=== PATIENT | male | born 1980 | race Caucasian/White ===

== ENCOUNTER → 2018-08-23 | Outpatient (CLI) | payer BC ==
[2018-08-23 11:01] LABS: HCT 44.1 % (39.0-53.0); HGB 14.6 gm/dL (13.0-17.5); MCH 28.4 pg (25.0-35.0); MCV 85.9 fL (80.0-100.0); Mean Platelet Volume 6.6; Platelet Count 308 k/uL (150-450); RBC 5.13 m/uL (4.30-5.90); RDW 13.1 % (11.5-15.5); WBC 5.1 k/uL (3.8-10.6)
[2018-08-23 12:02] LABS: Erythrocyte Sedimentation Rate 8 mm/hr (0-15)
[2018-08-23 17:00] LABS: Rheumatoid Factor 6 IU/mL (0-15); Streptolysin O Ab(ASO) <25 IU/mL (0-200)
[2018-08-23 17:02] LABS: C Reactive Protein 1.6 mg/dL (0.0-0.8); Uric Acid 8.9 mg/dL (3.7-8.7)
[2018-08-24 11:04] LABS: HLA B27 NEGATIVE
[2018-08-27 12:48] LABS: Lyme IgG/IgM 0.06 Index
== END | disposition home or self-care (01) ==
LOC: LABWHC1 09:18
PROVIDERS: ATTEND Orthopaedic Surgery
DX: M25.572 Pain in left ankle and joints of left foot (principal); M25.472 Effusion, left ankle; M19.072 Primary osteoarthritis, left ankle and foot; M10.9 Gout, unspecified
CPT/HCPCS: 36415; 84443; 84550; 85027; 85652; 86038; 86060; 86140; 86431; 86618; 86812; 89060

== ENCOUNTER 2022-10-27 07:15 | Day surgery (SDC) | payer BC ==
[2022-10-24 15:03] VITALS: BMI 39.6
[~2022-10-27 07:15] MED LIST: HYDROmorphone 0.5 MG/0.5 ML SYRINGE IVP PRN; LACTATED RINGERS 1,000 ML IV SCH; ONDANSETRON 4 MG/2 ML VIAL IVP PRN; ceFAZolin 3 GM in SODIUM CHLORIDE 0.9% 100 ML IVPB PRN
[2022-10-27 07:53] VITALS: RESP 16
[2022-10-27] MEDS ORDERED: DEXAMETHASONE SOD PHOSPHATE 4 MG/ML 1 ML VIAL IV ONE (08:09)
[2022-10-27] MEDS ORDERED: SCOPOLAMINE 1 MG/72 HR PATCH TRANSDERM ONE (08:09)
[2022-10-27] MEDS ORDERED: fentaNYL (PF) 50 MCG/1 ML VIAL IV ONE (08:10)
[2022-10-27] MEDS ORDERED: MIDAZOLAM 2 MG/2 ML VIAL IV ONE (08:10)
--- NOTE | 2022-10-27 08:25 | P.ANPRN ---
Procedure Note - Anesthesia - Nerve Block Performed Right Popliteal Single Time Out Performed: Yes Date of Procedure: 10/27/22 Procedure Start Time: 08:09 Procedure Stop Time: 08:14 Indication: Acute Post-Operative Pain, Requested by Surgeon Sedation Type: Sedate with meaningful contact maintained Preparation: Sterile Prep Position: Supine Needle Types: Pajunk Needle Gauge: 21 Ultrasound used to visualize needle placement: Yes Ultrasound used to observe medication spread: Yes Injectate: Other (see comment) (0.25% Ropiv 25 ml)
--- NOTE | 2022-10-27 08:26 | P.ANPRN ---
Procedure Note - Anesthesia - Nerve Block Performed Right Adductor Canal Single Time Out Performed: Yes Date of Procedure: 10/27/22 Procedure Start Time: 08:14 Procedure Stop Time: 08:17 Location of Patient: PreOp Indication: Acute Post-Operative Pain, Requested by Surgeon Sedation Type: Sedate with meaningful contact maintained Preparation: Sterile Prep Position: Supine Needle Types: Pajunk Needle Gauge: 21 Ultrasound used to visualize needle placement: Yes Ultrasound used to observe medication spread: Yes Injectate: Other (see comment) (0.25% Ropivicaine 25 ML) Blood Aspirated: No Pain Paresthesia on Injection Noted: No Resistance on Injection: Normal Image Stored and Saved: Yes Events: Uneventful and Well Tolerated
[2022-10-27] MEDS ORDERED: ROCURONIUM 10 MG/ML (5 ML VIAL) IV ONE (09:07)
[2022-10-27] MEDS ORDERED: SUCCINYLCHOLINE CHLORIDE 200 MG/10 ML VIAL IV ONE (09:07)
[2022-10-27] MEDS ORDERED: HYDROmorphone (PF) 1 MG/ML ONE (09:07)
[2022-10-27] MEDS ORDERED: MIDAZOLAM 2 MG/2 ML VIAL ONE (09:07)
[2022-10-27] MEDS ORDERED: ROPIVACAINE 5 MG/ML 30 ML VIAL ONE (09:07)
[2022-10-27] MEDS ORDERED: LIDOCAINE 2% INJ 20 MG/ML (2 ML VIAL) ONE (09:07)
[2022-10-27] MEDS ORDERED: KETOROLAC 30 MG/ML 1 ML VIAL ONE (09:07)
[2022-10-27] MEDS ORDERED: fentaNYL (PF) 50 MCG/ML 2 ML AMP ONE (09:07)
[2022-10-27] MEDS ORDERED: PROPOFOL 10 MG/ML 20 ML VIAL IV ONE (09:07)
[2022-10-27] MEDS ORDERED: LACTATED RINGERS 1,000 ML IV ONE ×2 (09:35→13:21)
[2022-10-27] MEDS ORDERED: ceFAZolin 1,000 MG in SODIUM CHLORIDE 0.9% 1,000 ML IRRIGATION ONE (09:51)
[2022-10-27 10:57] VITALS: TEMP 97
--- NOTE | 2022-10-27 11:07 | P.OP ---
Date of Procedure: 10/27/22 Preoperative Diagnosis: 1. Subluxation of syndesmosis right ankle 2. Rupture anterior inferior tibial-fibular ligament right ankle 3. Osteophytes right tibia 4. Possible deltoid ligament rupture right ankle Postoperative Diagnosis: 1. Subluxation syndesmosis right ankle 2. Ruptured anterior inferior tibial-fibular ligament right ankle 3. Osteophytes right tibia Procedure(s) Performed: 1. Open repair of syndesmosis right ankle 2. Secondary repair of anterior inferior tibial-fibular ligament right ankle 3. Excision of bone right tibia Implants: Arthrex tight rope 2 Arthrex internal brace Arthrex 2 hole one third tubular plate Anesthesia: RAE Surgeon: Maximilian Marlow Estimated Blood Loss (ml): 3 Pathology: none sent Condition: stable Disposition: PACU Description of Procedure: Prior to the patient being brought to the operating room, anesthesia administered a nerve block under right lower extremity. The patient was brought into the operating room and placed on table in the supine position. Timeout was taken to confirm correct patient identifiers, correct laterally of surgery, and correct procedure. When all staff improved of the timeout, the patient was induced and placed under general anesthesia. A well-padded tourniquet was placed on the right thigh and a wedge underneath the right hip to internally rotate the right leg. The right leg was then prepped and draped in the usual manner. The right leg was exsanguinated and the tourniquet inflated to 250 mmHg. Utilizing the C-arm, a metallic marker was used to identify the location of the articulation between the tibia and fibula over the ankle. The incision was made over this area. This deepened under the subcutaneous tissue careful to identify, avoid, and retract any neurovascular structures and cauterize any bleeding vessels. Blunt dissection was then carried down to the deep fascia and ankle joint capsule. Then these tissues were incised and reflected anteriorly and laterally to expose the surgical area and the anterior aspect of the ankle joint. The anterior aspect of the ankle joint was inspected first. There were large osteophytes on the anterior surface overlying the ankle joint. An osteotome was used to resect these osteophytes. One osteophyte appeared loose or very loosely adhered with scar tissue to the tibia. Once these osteophytes were removed, the bone was rasped smooth. Then it was palpated to make sure that all the osteophytes removed. Then attention was directed over the anterior lateral ankle where the syndesmosis was identified. External rotation of the ankle revealed abnormal motion of the syndesmosis. An osteotome was used to separate the tibia and fibula at the level of the syndesmosis. All interposing soft tissue was removed. A curet was also used to remove soft tissue and evacuated any abnormal material and the groove where the fibula would normally lie. Once it was completed, the area was thoroughly irrigated with antibiotic saline. A periarticular reduction clamp was then placed from medial to lateral the ankle joint. With the ankle joint held in maximum dorsiflexion, the clamp was used to reduce the syndesmosis under proper tensioning techniques. Once completed fluoroscopy confirmed that the syndesmosis was not reduced. Under direct fluoroscopy, the drill hole for the 3.5 mm anchor for the internal brace is made in the anterior surface of the fibula in the area of the attachment of the anterior inferior tibial-fibular ligament. The hole was tapped and then the anchor inserted with the suture until it was locked in place. Then a drill holes made in the anterior surface of the tibia proximal to the ankle joint. Broski was used to make sure that the drill holes properly aligned and didn't violate the syndesmosis or the ankle joint. The drill hole was made and then the hole was tapped. The clamp still in place and ankle maxillae dorsiflexed, the suture from the 3.5 mm anchor was then fed through the 4.75 anchor was then aligned with the drill hole in the tibia. Then utilizing proper tensioning techniques, the anchor was inserted with the suture impacted and then advanced until lock the suture in place. At that point the clamp was removed and the ankle was stressed and there did not appear to be any abnormal movement between the tibia and fibula at the level of the syndesmosis. Then attention was directed to the lateral malleolus where a 2 hole one third tubular plate was positioned for the placement of the tight rope anchors. Fluoroscopy was used to just positioning so that was correct both on AP and lateral views and that the most distal hole was 1 cm proximal to the ankle joint. Once properly aligned it was temporarily fixated. A guidewire for the cannulated drill was in place in the most proximal hole the plate and advanced from lateral to medial across the syndesmosis with slight posterior angulation so that a divergent pattern with the second tight rope could be done. Fluoroscopy was used to confirm that the wire was properly aligned and did not exit out the posterior aspect of the tibia. Once the proper wire placement was confirmed, drilling was done over the wire until the medial cortex of the medial tibia was breached. The first tight rope was positioned and advanced until the button clear the medial cortex of the tibia. The button was then deployed and tension was placed on the structures mechanic to flatten the button against the cortex of the tibia. Then the suture was released and the structures mechanic removed. The lateral button was then tensioned down to the plate but repair tension was not completed at this time. Another guidewire through the more distal hole the 2 hole plate, was used for the placement of the second tight rope. The wire was advanced under fluoroscopic visualization so it was parallel to the first wire, approxim ately 1 cm superior to the ankle joint, and angulated more anteriorly to create a divergent pattern between the 2 tight rope anchors. Fluoroscopy was used to confirm the proper placement of the wire both on AP and lateral views. The wire was advanced until the medial cortex of the tibia was penetrated. The cannulated drill was inserted over the wire and the drill advanced in similar fashion until the medial cortex the tibia was penetrated. The second tight rope anchor was inserted and advanced until the button cleared the medial cortex of the tibia. The button was deployed and tension was placed on the structures mechanic until the buttonlike flat against the bone. Then the structures mechanic was removed and then the lateral button was tensioned. Ankle was maxillae dorsiflexed and the periarticular clamp adjusted for reduction. The more distal of the tight rope was tensioned first bringing the button against the plate. Similar technique was done on the more proximal tight rope. Under live fluoroscopy, stress testing the ankle was performed which included eversion and external rotation. During both of these maneuvers, no abnormal gapping of the medial joint space was noted and no abnormal motion of the syndesmosis was noted. Therefore at this time, repair the deltoid was not needed. The wound is then thoroughly irrigated with antibiotic saline. Deep closure was done with 0 Vicryl. Subcu closure done for Monocryl. And skin closure was done with 4-0 Sratafix in a running subcuticular manner. Dermal glue was applied and allowed to dry then covered Steri-Strips and Arthrex jumpstart bandage and a dry sterile dressing. The tourniquet was released and capillary refill return to all digits on the right foot. The patient was then placed in a well-padded, well molded plaster posterior mold/sugar tong splint. Ankle was held in neutral position as splint dried. Then anesthesia was reversed and the patient went to recovery vital signs stable.
[2022-10-27] MEDS ORDERED: droPERidol 5 MG/2 ML VIAL IVP ONE (11:44)
--- NOTE | 2022-10-27 11:51 | XR ---
EXAMINATION TYPE: XR ankle limited RT DATE OF EXAM: 10/27/2022 COMPARISON: NONE TECHNIQUE: 6 views submitted HISTORY: Post op FINDINGS: There is postsurgical change of the ankle in near anatomic alignment. There is soft tissue edema and emphysema. IMPRESSION: 1. Postoperative change. Appears in near-anatomic alignment
--- NOTE | 2022-10-27 11:53 | FL ---
EXAMINATION TYPE: FL guidance operating room DATE OF EXAM: 10/27/2022 HISTORY: Fluoroscopy time Total dose area product (DAP) in uGy*m?, mGy*cm? (or similar): 1. 3188 IMPRESSION: 1. Fluoroscopy time.
[2022-10-27 12:22] LABS: Glucose,Whole Blood 149 mg/dL (70-110)
[2022-10-27 13:50] VITALS: BP 146/99; PULSE 78
== END 2022-10-27 14:06 | disposition home or self-care (01) ==
LOC: OR 07:15
PROVIDERS: ATTEND Podiatrist
DX: S93.01XA Subluxation of right ankle joint, initial encounter (principal); S93.431A Sprain of tibiofibular ligament of right ankle, initial encounter; M25.771 Osteophyte, right ankle; I10 Essential (primary) hypertension; G80.9 Cerebral palsy, unspecified; M10.9 Gout, unspecified; G47.33 Obstructive sleep apnea (adult) (pediatric); Z99.89 Dependence on other enabling machines and devices; Z79.899 Other long term (current) drug therapy; G89.18 Other acute postprocedural pain; X58.XXXA Exposure to other specified factors, initial encounter
CPT/HCPCS: 27829; 27635; 64447; 64445; 73600; C1713 ×2; J2250; J0330; J1100; J0690 ×2; J2405; J3010 ×2; J1885; J1170; J2795; J2704; J1790; J2001